=== PATIENT | male | born 1975 | race African-American/Black ===

== ENCOUNTER 2019-01-18 21:40 | Inpatient (IN) ==
[2019-01-18 22:13] LABS: Basophils # 0.1 10*3/uL (0.0-0.2); Basophils % 0.3 % (0.0-0.8); Eosinophils % 0.2 % (0.00-10.9); Hematocrit 50.3 VOL% (42.0-52.0); Hemoglobin 15.8 GM/DL (14.0-18.0); Lymphocytes # 1.4 10*3/uL (1.4-4.0); Lymphocytes % 7.1 % (21.2-54.2); Mean Corpuscular HGB Conc 31.4 GM/DL (32-36); Mean Corpuscular Hemoglobin 30 PG (27-34); Mean Corpuscular Volume 95.8 FL (87-102); Mean Platelet Volume 9.5 FL (9.6-12.0); Monocytes # 2.8 10*3/uL (0.11-0.8); Monocytes % 14.2 % (1.7-12.7); Neutrophils # 15.1 10*3/uL (1.4-7.4); Neutrophils % 77.2 % (38.7-73.9); Platelet Count 226 T/CUMM (130-400); Red Blood Count 5.25 MC/CUMM (3.8-5.5); Red Cell Distribution Width 12.7 % (9.3-17.3); White Blood Count 19.6 T/CUMM (4-12)
[2019-01-18 22:17] LABS: PT Patient Result 11.3 SECS; Partial Thromboplastin Time 27.2 SECS (0-40)
[2019-01-18 22:29] LABS: Albumin 4.4 G/DL (3.4-5.0); Bilirubin,Total 1.3 MG/DL (0.2-1.0); Calcium 9.5 MG/DL (8.5-10.1); Osmolality,Calculated 272.7 MOS/KG (273-304); Potassium 3.8 MMOL/L (3.5-5.1); Total Protein 8.4 G/DL (6.4-8.3)
[2019-01-19] MEDS ORDERED: SODIUM CHLORIDE 0.9% 1,000 ML IV STA (03:07)
[2019-01-19] MEDS ORDERED: KETOROLAC 30 MG/1 ML VIAL IV STA (03:07)
[2019-01-19] MEDS ORDERED: ONDANSETRON 4 MG/2 ML VIAL IV ONE (03:07)
[2019-01-19] MEDS ORDERED: LEVOFLOXACIN INJ 500 MG in PREMIX 1 EACH IV STA (04:38)
[2019-01-19] MEDS ORDERED: ONDANSETRON 4 MG/2 ML VIAL IV PRN (06:09)
[2019-01-19] MEDS: ALBUTEROL/IPRATROPIUM 3 ML NEB RESP TX SCH ×5 (08:25→22:48)
[2019-01-19] MEDS ORDERED: ENOXAPARIN 40 MG/0.4 ML SYRINGE SUBCUT SCH (09:00)
[2019-01-19] MEDS ORDERED: ENOXAPARIN 80 MG/0.8 ML SYRINGE SUBCUT SCH (09:00)
[2019-01-19] MEDS: MORPHINE 4 MG/1 ML VIAL IV PRN ×3 (09:58→19:42)
[2019-01-19] MEDS: ENOXAPARIN 100 MG/ML SYRINGE SUBCUT SCH ×2 (10:00→20:32)
[2019-01-19] MEDS: PANTOPRAZOLE 40 MG TABLET PO SCH (10:01)
[2019-01-19 10:42] LABS: Troponin I < 0.015 NG/ML (0.00-0.045)
[2019-01-19 16:00] LABS: Troponin I < 0.015 NG/ML (0.00-0.045)
[2019-01-19] MEDS: ACETAMINOPHEN 325 MG TABLET PO PRN (20:32)
[2019-01-19 21:58] LABS: Troponin I < 0.015 NG/ML (0.00-0.045)
[2019-01-20] MEDS: MORPHINE 4 MG/1 ML VIAL IV PRN ×4 (00:06→20:16)
[2019-01-20] MEDS: ALBUTEROL/IPRATROPIUM 3 ML NEB RESP TX SCH ×6 (02:36→23:01)
[2019-01-20] MEDS: ACETAMINOPHEN 325 MG TABLET PO PRN ×4 (05:19→20:17)
[2019-01-20] MEDS: LEVOFLOXACIN INJ 500 MG in PREMIX 1 EACH IV SCH (05:20)
[2019-01-20 06:18] LABS: Basophils % 0.2 % (0.0-0.8); Eosinophils % 0.1 % (0.00-10.9); Hematocrit 42.7 VOL% (42.0-52.0); Hemoglobin 13.5 GM/DL (14.0-18.0); Immature Granulocytes % 0.9 %; Immature Granulocytes Absolute 0.14 #; Lymphocytes % 6.3 % (21.2-54.2); Mean Corpuscular HGB Conc 31.6 GM/DL (32-36); Mean Corpuscular Hemoglobin 30 PG (27-34); Mean Corpuscular Volume 95.5 FL (87-102); Mean Platelet Volume 10.1 FL (9.6-12.0); Monocytes # 2.9 10*3/uL (0.11-0.8); Neutrophils # 11.3 10*3/uL (1.4-7.4); Neutrophils % 73.5 % (38.7-73.9); Platelet Count 191 T/CUMM (130-400); Red Blood Count 4.47 MC/CUMM (3.8-5.5); Red Cell Distribution Width 12.6 % (9.3-17.3); White Blood Count 15.3 T/CUMM (4-12)
[2019-01-20 06:45] LABS: Calcium 8.6 MG/DL (8.5-10.1); Potassium 3.6 MMOL/L (3.5-5.1)
[2019-01-20 07:13] LABS: Eosinophils 1 % (0-10); Lymphocytes 5 % (20-55); Segmented Neutrophils 79 % (50-85); Total Cells Counted 100
[2019-01-20 07:14] LABS: Hypochromasia 1+; Platelet Estimate Adequate
[2019-01-20] MEDS: APIXABAN 5 MG TABLET PO SCH ×2 (08:45→20:18)
[2019-01-20] MEDS: PANTOPRAZOLE 40 MG TABLET PO SCH (08:53)
[2019-01-20 13:42] LABS: Apearance,Urine CLEAR (Clear); Bilirubin,Urine Negative (Negative); Blood, Urine Small mg/dL (Negative); Glucose,Urine (UA) Negative (Negative); Ketones,Urine 80 mg/dL (Negative); Mucus,Urine Occasional /LPF (Occasional); Nitrite,Urine Negative (Negative); Protein,Urine 30 MG/DL; RBC,Urine 28 /HPF (0-4); Urine Color Amber (Yellow); Urine Specific Gravity 1.024 (1.001-1.035); WBC,Urine 28 /HPF (0-6)
[2019-01-20] MEDS: SODIUM CHLORIDE 0.9% 1,000 ML IV SCH (15:30)
[2019-01-21] MEDS: ALBUTEROL/IPRATROPIUM 3 ML NEB RESP TX SCH ×6 (02:55→22:53)
[2019-01-21] MEDS: SODIUM CHLORIDE 0.9% 1,000 ML IV SCH ×2 (05:17→16:35)
[2019-01-21] MEDS: LEVOFLOXACIN INJ 500 MG in PREMIX 1 EACH IV SCH (05:20)
[2019-01-21] MEDS: MORPHINE 4 MG/1 ML VIAL IV PRN ×3 (05:30→21:11)
[2019-01-21 05:54] LABS: Basophils % 0.2 % (0.0-0.8); Eosinophils % 0.2 % (0.00-10.9); Hematocrit 41.1 VOL% (42.0-52.0); Hemoglobin 13.2 GM/DL (14.0-18.0); Immature Granulocytes % 0.7 %; Lymphocytes # 1.1 10*3/uL (1.4-4.0); Lymphocytes % 7.8 % (21.2-54.2); Mean Corpuscular HGB Conc 32.1 GM/DL (32-36); Mean Corpuscular Hemoglobin 30 PG (27-34); Mean Corpuscular Volume 94.5 FL (87-102); Mean Platelet Volume 10.2 FL (9.6-12.0); Monocytes # 2.5 10*3/uL (0.11-0.8); Monocytes % 17.6 % (1.7-12.7); Neutrophils # 10.3 10*3/uL (1.4-7.4); Neutrophils % 73.5 % (38.7-73.9); Platelet Count 197 T/CUMM (130-400); Red Blood Count 4.35 MC/CUMM (3.8-5.5); Red Cell Distribution Width 12.4 % (9.3-17.3)
[2019-01-21 06:11] LABS: Calcium 8.7 MG/DL (8.5-10.1); Potassium 3.6 MMOL/L (3.5-5.1)
[2019-01-21 06:23] LABS: Band Neutrophils 1 % (0-10); Hypochromasia 1+; Lymphocytes 8 % (20-55); Platelet Estimate Adequate; Segmented Neutrophils 74 % (50-85); Total Cells Counted 100
[2019-01-21] MEDS: PANTOPRAZOLE 40 MG TABLET PO SCH (08:23)
[2019-01-21] MEDS: APIXABAN 5 MG TABLET PO SCH ×2 (08:23→21:05)
[2019-01-21] MEDS: ACETAMINOPHEN 325 MG TABLET PO PRN (14:21)
[2019-01-22] MEDS: ALBUTEROL/IPRATROPIUM 3 ML NEB RESP TX SCH ×3 (03:42→11:24)
[2019-01-22] MEDS: MORPHINE 4 MG/1 ML VIAL IV PRN (04:03)
[2019-01-22] MEDS: SODIUM CHLORIDE 0.9% 1,000 ML IV SCH (04:06)
[2019-01-22] MEDS: LEVOFLOXACIN INJ 500 MG in PREMIX 1 EACH IV SCH (05:13)
[2019-01-22 08:52] VITALS: BP 115/71
[2019-01-22] MEDS: PANTOPRAZOLE 40 MG TABLET PO SCH (09:43)
[2019-01-22] MEDS: APIXABAN 5 MG TABLET PO SCH (09:43)
== END 2019-01-22 12:30 | disposition home or self-care (01) | DRG 175 ==
LOC: N.ED 21:40 → N.EDINP 01-19 06:09 → SUATTDRO 01-19 06:09 → N.5E 01-19 06:26
PROVIDERS: ADMIT Internal Medicine; ATTEND Internal Medicine